=== PATIENT | female | born 1990 | race Hispanic/Latino ===

== ENCOUNTER 2022-03-25 20:38 | Observation (INO) | payer OTHER ==
[~2022-03-25] VITALS: Ht 157.5 cm; Wt 64.0 kg
[2022-03-25] MEDS ORDERED: PANTOPRAZOLE 40 MG/VIAL IVP ONE (21:30)
[2022-03-25] MEDS ORDERED: 0.9%NACL 1000ML 1,000 ML IV ONE (21:30)
[2022-03-25] MEDS ORDERED: PANTOPRAZOLE 40 MG/VIAL ONE (21:40)
[2022-03-25 21:45] LABS: BASOPHILS % (AUTO) 0.5 % (0.0-5.0); HEMATOCRIT 42.6 % (36-48); LYMPHOCYTES % (AUTO) 35.8 % (21.0-51.0); MEAN CORPUSCULAR HEMOGLOBIN 27.3 pg (27.0-33.0); MEAN CORPUSCULAR HGB CONC 33.3 g/dL (32.0-36.0); MEAN CORPUSCULAR VOLUME 81.9 fL (79-99); MONOCYTES % (AUTO) 7.9 % (3.0-13.0); NEUTROPHILS % (AUTO) 54.5 % (40.0-77.0); PLATELET COUNT (AUTO) 272 K/uL (130-400); RED CELL DISTRIBUTION WIDTH 12.2 % (11.0-15.5); WHITE BLOOD COUNT (AUTO) 9.4 K/uL (4.8-10.8)
[2022-03-25 21:54] LABS: CREATININE 0.6 mg/dL (0.5-1.5); POTASSIUM 3.4 mmol/L (3.5-5.1)
[2022-03-25 21:58] LABS: ALBUMIN 4.2 g/dL (3.5-5.0); BILIRUBIN,TOTAL 0.6 mg/dL (0.2-1.0); TOTAL PROTEIN, SERUM 7.9 g/dL (6.0-8.3)
[2022-03-25 22:01] LABS: INR 0.94 (0.85-1.15); PROTHROMBIN TIME 10.3 SEC (9.6-11.6)
[2022-03-25 22:02] LABS: PARTIAL THROMBOPLASTIN TIME 25.6 SEC (26.3-35.5)
[2022-03-25] MEDS ORDERED: POTASSIUM BICARB/CIT AC 25 MEQ TABLET.EFF ONE (22:17)
[2022-03-25] MEDS ORDERED: POTASSIUM BICARB/CIT AC 25 MEQ TABLET.EFF PO ONE (22:30)
[2022-03-25 22:32] LABS: HCG,QUAL RESULT NEGATIVE (NEGATIVE)
[2022-03-25 22:33] LABS: APPEARANCE,URINE Clear (CLEAR); BILIRUBIN,URINE Negative (NEGATIVE); COLOR,URINE Yellow (YELLOW); GLUCOSE, URINE (UA) Negative (NEGATIVE); KETONES,URINE Negative (NEGATIVE); LEUKOCYTE ESTERASE ,URINE Negative (NEGATIVE); NITRATE,URINE Negative (NEGATIVE); OCCULT BLOOD,URINE Negative (NEGATIVE); PROTEIN,URINE Negative (NEGATIVE); UROBILINOGEN,URINE 0.2 mg/dL (0.2-1.0)
[2022-03-25] MEDS ORDERED: 0.9%NACL 1000ML 1,000 ML IV SCH (23:00)
[2022-03-26] MEDS ORDERED: ACETAMINOPHEN 650 MG SUPPOSITORY RC PRN (00:30)
[2022-03-26] MEDS ORDERED: ACETAMINOPHEN 325 MG TAB PO PRN (00:30)
[2022-03-26] MEDS ORDERED: LACTULOSE 20 GM/30 ML UDCUP PO PRN (00:30)
[2022-03-26] MEDS ORDERED: TEMAZEPAM 15 MG CAPSULE PO PRN (00:30)
[2022-03-26] MEDS ORDERED: ONDANSETRON 4MG INJ IVP PRN (00:30)
[2022-03-26 00:48] LABS: HEMATOCRIT 40.6 % (36-48)
[2022-03-26] MEDS: 0.9%NACL 1000ML 1,000 ML IV SCH ×2 (02:14→05:33)
[2022-03-26 05:10] VITALS: BP 111/68
[2022-03-26 08:04] VITALS: BP 109/73
[2022-03-26] MEDS: PANTOPRAZOLE 40 MG/VIAL IVP SCH ×2 (08:57→22:06)
[2022-03-26 12:00] VITALS: BP 102/56
[2022-03-26 12:37] LABS: HEMATOCRIT 36.8 % (36-48)
[2022-03-26] MEDS ORDERED: PEG 3350/NA SULF,BICARB,CL/KCL 4000 ML SOLN PO STA (16:30)
[2022-03-26 17:27] VITALS: BP 116/72
[2022-03-26 18:14] LABS: HEMATOCRIT 40.5 % (36-48)
[2022-03-26] MEDS ORDERED: MONTELUKAST (19:02)
[2022-03-26 20:38] VITALS: BP 120/73
[2022-03-27] VITALS (19 sets, daily range): BP systolic 90–127; BP diastolic 46–72
[2022-03-27 05:19] LABS: BASOPHILS % (AUTO) 0.4 % (0.0-5.0); EOSINOPHILS % (AUTO) 1.8 % (0.0-8.0); HEMATOCRIT 35.5 % (36-48); LYMPHOCYTES % (AUTO) 39.9 % (21.0-51.0); MEAN CORPUSCULAR HEMOGLOBIN 27.6 pg (27.0-33.0); MEAN CORPUSCULAR VOLUME 83.7 fL (79-99); NEUTROPHILS % (AUTO) 48.7 % (40.0-77.0); PLATELET COUNT (AUTO) 218 K/uL (130-400); RED BLOOD CELL COUNT(AUTO) 4.24 MIL/uL (4.00-5.50); RED CELL DISTRIBUTION WIDTH 12.5 % (11.0-15.5); WHITE BLOOD COUNT (AUTO) 5.6 K/uL (4.8-10.8)
[2022-03-27 05:46] LABS: ALBUMIN 3.1 g/dL (3.5-5.0); CREATININE 0.6 mg/dL (0.5-1.5); MAGNESIUM 1.8 mg/dL (1.80-2.40); PHOSPHORUS 3.2 mg/dL (2.5-4.9); POTASSIUM 3.7 mmol/L (3.5-5.1); TOTAL PROTEIN, SERUM 5.8 g/dL (6.0-8.3)
[2022-03-27] MEDS: PANTOPRAZOLE 40 MG/VIAL IVP SCH (08:07)
[2022-03-27] MEDS: 0.9%NACL 1000ML 1,000 ML IV SCH ×2 (08:08→14:15)
[2022-03-27] MEDS ORDERED: LIDOCAINE PF 100MG/5ML (2%) SYRINGE 5ML ONE (11:43)
[2022-03-27] MEDS ORDERED: PROPOFOL 10 MG/ML 20ML VIAL IV ONE (11:43)
[2022-03-27] MEDS ORDERED: FENTANYL CITRATE PF 50 MCG/1 ML 2ML VIAL ONE (11:43)
[2022-03-27] MEDS ORDERED: EPHEDRINE SULFATE 50 MG/ML AMPULE ONE (11:45)
[2022-03-27] MEDS ORDERED: MIDAZOLAM HCL 1 MG/ML 2ML VIAL ONE (11:56)
== END 2022-03-27 18:41 | disposition home or self-care (01) ==
LOC: EDH 20:38 → EDHIP 03-26 00:25 → 3AH 03-26 04:03
PROVIDERS: ADMIT Internal Medicine Critical Care Medicine; ATTEND Internal Medicine Critical Care Medicine
DX: K92.1 Melena (principal); K64.4 Residual hemorrhoidal skin tags; K52.9 Noninfective gastroenteritis and colitis, unspecified; I95.1 Orthostatic hypotension; E87.6 Hypokalemia; Z79.899 Other long term (current) drug therapy
CPT/HCPCS: 36415 ×3; 45380; 74176; 80053 ×2; 81003; 81025; 82270; 83735; 84100; 85014 ×4; 85018 ×4; 85025 ×2; 85610; 85730; 96361 ×3; 96374; 96375; 96376 ×2; 99284; A4215; A4606; A4620; C9113 ×4; G0378 ×40; J2001; J2250; J2405; J2704; J3010; J3490; J7030

== ENCOUNTER → 2023-03-24 | Outpatient (CLI) | payer OTHER ==
[~2023-03-24] MED LIST: DIATR MEGLU/DIATRIZOATE SODIUM 30 ML BOTTLE ONE
== END | disposition home or self-care (01) ==
LOC: RAH 08:22
PROVIDERS: ATTEND Surgery
DX: K31.84 Gastroparesis (principal)
CPT/HCPCS: 74240; Q9963

== ENCOUNTER → 2023-04-09 | Outpatient (CLI) | payer OTHER | END | disposition home or self-care (01) | LOC: RAH 07:33 | PROVIDERS: ATTEND Surgery | DX: K31.84 Gastroparesis (principal) | CPT/HCPCS: 78264; A9541 ==

== ENCOUNTER 2024-09-16 09:31 | Emergency (ER) | payer BC, OTHER ==
[~2024-09-16] VITALS: Ht 157.5 cm; Wt 55.8 kg
[2024-09-16 09:39] VITALS: BP 100/76; PULSE 80; RESP 16; TEMP 98.4; O2SAT 98
--- NOTE | 2024-09-16 09:52 | ERN ---
General Chief Complaint: Flank Pain Stated Complaint: RT FLANK PAIN Time Seen by MD: 09:33 History of Present Illness Initial Comments 33-year-old female history of gastroparesis presents for right flank pain. Patient reports it began last night, it is located in the right flank, it is severe, the area is tender. No nausea or vomiting. No diarrhea. She does report some dysuria recently. No fevers. She is currently on amoxicillin for a throat infection. Medical history: Gastroparesis Surgical history: Bypass surgery for the gastroparesis done by Carson Godinez. PCP: [facility], [place] Allergies: Coded Allergies: No Known Drug Allergies (Unverified Allergy, Unknown, 03/25/22) Home Meds No Active Prescriptions or Reported Meds Past Medical History Past Medical History: Other Medical History Other: GASTROPARISIS Past Surgical History: Other Surgical History Other: ABD SX, GABBI GUTIERREZ Family History Family History: Negative Social History Social History: Negative Female( History) LMP: Sep 04, 2024 : 5 Para: 5 Aborts: 0 ROS Dictation CONSTITUTIONAL: No chills, no fever, no weakness, no diaphoresis, no malaise. HEAD/FACE: No signs of trauma. EENT: No eye pain, no blurred vision, no tearing, no double vision, no ear pain, no ear discharge, no nose pain, no nasal congestion, no throat pain, no throat swelling, no mouth pain. RESPIRATORY: No cough, no orthopnea, no SOB, no stridor, no wheezing. CARDIOVASCULAR: No chest pain, no edema, no palpitations, no syncope. GASTROINTESTINAL/ABDOMINAL: Right flank pain GENITOURINARY: No abnormal discharge, no dysuria, no frequent urination, no hematuria. No complaints of pain in the genitals. MUSCULOSKELETAL: No back pain, no gout, no joint pain, no joint swelling, no muscle pain, no muscle stiffness, no neck pain. INTEGUMENTARY: No change in color, no change in hair/nails, no dryness, no lesion, no lumps, no rash. NEUROLOGICAL/PSYCH: No anxiety, not depressed, no emotional problem, no headache, no numbness, no pre-existing deficit, no history of seizures, no tremors, no weakness. HEMATOLOGIC/LYMPHATIC: Not anemic, no history of blood clots, no apparent bleeding, no bruising, glands not swollen. All Systems Negative, Except as Noted. Physical Exam Physical Exam Dictation VITAL SIGNS: Reviewed. GENERAL APPEARANCE: Alert, oriented x3, moderate distress due to pain HEAD AND FACE: Non-traumatic. EYES: PERRL, pink conjunctivas, eyelid no trauma, anterior chamber clear. EARS: Pinnas intact and no signs of trauma or erythema. Ear canals clear and no discharge. TMs no erythema. NOSE: No discharge, no bleeding. OROPHARYNX: Mouth normal, teeth no caries, tongue pink. Pharynx clear, no erythema. Tonsils no exudates, no abscesses noted. Mucous membrane moist. NECK: Supple, non-tender, no thyromegaly, no masses, no JVD, no bruits. BREAST: Deferred. CHEST: No tenderness, no crepitus, no paradoxical movement, no retractions. LUNGS: Clear, well-ventilated, symmetric, no rales, no wheezing, no rhonchi, no stridor, good breath sounds bilaterally. HEART: Regular rate, regular rhythm, no murmur, no gallops. VASCULAR: No peripheral edema. ABDOMEN: Right flank pain RECTAL: Deferred. GENITAL: Deferred. NEUROLOGICAL: Normal speech, gross motor function intact, gross sensory function intact. MUSCULOSKELETAL: Neck nontender, full range of motion, back nontender, full range of motion. EXTREMITIES: Nontender, full range of motion. SKIN: Color pink, dry, no turgor, no rash, no lacerations, no abrasions, no contusions. LYMPHATICS: Deferred. Results Laboratory and Microbiology Lab and Micro Result Laboratory Tests Test 09/16/24 09:40 09/16/24 09:53 Urine Color LIGHT-YELLOW (YELLOW) Urine Appearance CLEAR (CLEAR) Urine pH 7.0 (5.0-8.0) Urine Specific [place] 1.021 (1.001-1.031) Urine Protein NEGATIVE mg/dL (NEGATIVE) Urine Glucose (UA) NEGATIVE mg/dL (NEGATIVE) Urine Ketones NEGATIVE mg/dL (NEGATIVE) Urine Occult Blood NEGATIVE (NEGATIVE) Urine Nitrate NEGATIVE (NEGATIVE) Urine Bilirubin NEGATIVE mg/dL (NEGATIVE) Urine Urobilinogen 0.2 mg/dL (0.2-1.0) Urine Leukocyte Esterase NEGATIVE Markos/uL Urine HCG, Qualitative NEGATIVE (NEGATIVE) White Blood Count 9.7 K/uL (4.8-10.8) Red Blood Count 4.92 MIL/uL (4.00-5.50) Hemoglobin 13.5 g/dL (12.0-16.0) Hematocrit 40.2 % (36-48) Mean Corpuscular Volume 81.7 fL (79-99) Mean Corpuscular Hemoglobin 27.4 pg (27.0-33.0) Mean Corpuscular Hemoglobin Concent 33.6 g/dL (32.0-36.0) Red Cell Distribution Width 12.4 % (11.0-15.5) Platelet Count 291 K/uL (130-400) Mean Platelet Volume 9.0 fL (7.5-10.5) Immature Granulocyte % (Auto) 0.3 % (0-1) Neutrophils (%) (Auto) 65.5 % (40.0-77.0) Lymphocytes (%) (Auto) 25.8 % (21.0-51.0) Monocytes (%) (Auto) 7.2 % (3.0-13.0) Eosinophils (%) (Auto) 0.9 % (0.0-8.0) Basophils (%) (Auto) 0.3 % (0.0-5.0) Neutrophils # (Auto) 6.3 K/uL (1.8-7.7) Lymphocytes # (Auto) 2.5 K/uL (1.0-4.8) Monocytes # (Auto) 0.7 K/uL (0.1-1.0) Eosinophils # (Auto) 0.09 K/uL (0.00-0.70) Basophils # (Auto) 0.03 K/uL (0.00-0.20) Absolute Immature Granulocyte (auto 0.03 K/uL (0-1) Nucleated Red Blood Cells 0.0 % (0.0-0.19) Sodium Level 140 mmol/L (136-145) Potassium Level 4.1 mmol/L (3.5-5.1) Chloride Level 104 mmol/L (101-111) Carbon Dioxide Level 30 mmol/L (21-32) Blood Urea Nitrogen 11 mg/dL (7-18) Creatinine 0.6 mg/dL (0.5-1.0) Glomerular Filtration Rate Calc 120 mL/min (>90) Random Glucose 94 mg/dL (70-105) Total Calcium 9.1 mg/dL (8.5-10.1) Total Bilirubin 1.8 mg/dL (0.2-1.0) H Direct Bilirubin 0.2 mg/dL (0.0-0.3) Aspartate Amino Transf (AST/SGOT) 10 U/L (10-37) Alanine Aminotransferase (ALT/SGPT) 15 U/L (12-78) Alkaline Phosphatase 49 U/L (50-136) L Total Creatine Kinase 33 U/L (21-232) Total Protein 7.5 g/dL (6.0-8.3) Albumin 3.9 g/dL (3.5-5.0) Lipase 34 U/L (16-77) MDM CC: Flank pain Historian: Patient Comorbidities: Gastroparesis Limitations by social determinants of health: None Differential diagnosis: Kidney stone, biliary disease, lung pathology, other. Vital signs: Stable CBC normal BMP normal. T bili mildly elevated 1.8 otherwise normal liver function tests. Lipase normal. Urinalysis normal CXR: No pleural effusions focal infiltrates on the right lower side independently interpreted by me. CT scan of the abdomen and pelvis shows no acute abnormalities independently interpreted by me. There is no free fluid. Radiology also read the CT scan without any acute abnormalities describing the patient's pain. Ultrasound of the abdomen right upper quadrant shows no biliary disease, all within normal limits. Independently interpreted by me. Patient received 1 L normal saline, IV Dilaudid, IV Zofran, IV Toradol here in the ER. On re-evaluation her pain is better controlled. I do not see any life threats or obvious causes of her discomfort this time. We will DC with pain control and recommend PCP follow up. ED Course Orders Procedure Category Date Status Time Cbc With Differential LAB 09/16/24 Complete 09:49 ,Urine Test LAB 09/16/24 Complete 09:49 Urinalysis Profile LAB 09/16/24 Complete 09:49 Ct Abdomen/Pelvis CT 09/16/24 Resulted W/Contrast 09:49 0.9%Nacl 1000ml (Ns PHA 09/16/24 Complete 1000ml) 10:00 Hydromorphone 1 Mg PHA 09/16/24 Complete Inj (Dilaudid 1mg Inj 10:00 Ondansetron 4mg Inj PHA 09/16/24 Complete (Zofran 4mg Inj) 10:00 Creatine Kinase, Total LAB 09/16/24 Complete 09:49 Lipase LAB 09/16/24 Complete 09:49 Basic Metabolic Panel LAB 09/16/24 Complete 09:49 Hepatic Function Panel LAB 09/16/24 Complete 09:49 Ketorolac PHA 09/16/24 Complete Tromethamine 15mg/Ml 10:00 Chest 1vw RAD 09/16/24 Taken 09:49 Iohexol (Omnipaque) PHA 09/16/24 Complete 10:07 Us Abdominal Ruq\Ltd US 09/16/24 Taken 11:27 Current Medications Medications (Trade) Dose Ordered Sig/[place] Route PRN Reason Start Time Stop Time Status Last Admin Dose Admin Hydromorphone HCl (DiLAUDid 1MG INJ) 1 mg ONCE ONCE IVP 09/16/24 10:00 09/16/24 10:01 DC 09/16/24 10:02 Iohexol (Omnipaque) 75 ml STK-MED ONCE IV 09/16/24 10:07 09/16/24 10:07 DC Ketorolac Tromethamine (toRADol) 15 mg ONCE ONCE IV 09/16/24 10:00 09/16/24 10:01 DC 09/16/24 10:02 Ondansetron HCl (zoFRAN 4MG INJ) 4 mg ONCE ONCE IVP 09/16/24 10:00 09/16/24 10:01 DC 09/16/24 10:02 Sodium Chloride 1,000 ml @ 0 mls/hr ONCE ONCE IV 09/16/24 10:00 09/16/24 10:01 DC 09/16/24 10:02 Vital Signs Date Time Temp Pulse Resp B/P (MAP) Pulse Ox O2 Delivery O2 Flow Rate FiO2 09/16/24 09:39 98.4 80 16 100/76 98 Room Air* 0 21 09/16/24 09:33 98.4 80 16 103/76 100 Room Air DX & DISP Disposition: Discharge Departure Impression: Primary Impression: Right flank pain Condition: Stable Scripts Acetaminophen with Codeine (Acetaminophen-Cod #3 Tablet) 300 Mg-30 Mg Tablet 1 TAB PO Q6HPRN PRN for pain for 5 Days, #15 TAB 0 Refills Prov: CARO STEINBERG DO 09/16/24 Meloxicam (Meloxicam) 15 Mg Tablet 15 MG PO DAILY PRN for PAIN for 7 Days, #7 TAB Prov: CARO STEINBERG DO 09/16/24 Additional Instructions: There are no dangerous findings on your workup here today. Your symptoms may be musculoskeletal type pain or you may have recently passed a kidney stone. Your lab work (CBC, BMP, lipase, liver function tests, urinalysis) is normal. The CT scan of your abdomen and pelvis with contrast shows small ovarian cysts that are unlikely related to your symptoms. Otherwise there are no abnormalities. The ultrasound of your gallbladder and liver are normal. Your chest x-ray is normal. You received IV pain control and IV fluids here in the emergency department. I have prescribed meloxicam, which is an anti-inflammatory pain medication that you can take once per day for the next week or so. Use as needed. I have also prescribed Tylenol No. 3 (with codeine) to use for significant pain. You can take this 3 times per day as needed. I also recommend that you try [id number] patches such as Salonpas or lidocaine patches. If you continue with symptoms by early next week, I recommend he follow up with your primary doctor for re-evaluation. Please return to the emergency department if you have any concerns. Referrals: VICTOR MANUEL AIKEN MD (PCP) CARO STEINBERG DO Sep 16, 2024 09:52
[2024-09-16] MEDS: hydroMORPHone 1 MG INJ IVP ONE (10:02)
[2024-09-16] MEDS: ketOROlac 15MG/ML VIAL (15MG/ML) IV ONE (10:02)
[2024-09-16] MEDS: 0.9%NACL 1000ML 1,000 ML IV ONE (10:02)
[2024-09-16] MEDS: ondanSETRON 4MG INJ IVP ONE (10:02)
[2024-09-16 10:03] LABS: BASOPHILS # (AUTO) 0.03 K/uL (0.00-0.20); BASOPHILS % (AUTO) 0.3 % (0.0-5.0); EOSINOPHILS # (AUTO) 0.09 K/uL (0.00-0.70); EOSINOPHILS % (AUTO) 0.9 % (0.0-8.0); HEMATOCRIT 40.2 % (36-48); IMMATURE GRANULOCYTE ABSOLUTE 0.03 K/uL (0-1); LYMPHOCYTES # (AUTO) 2.5 K/uL (1.0-4.8); LYMPHOCYTES % (AUTO) 25.8 % (21.0-51.0); MEAN CORPUSCULAR HEMOGLOBIN 27.4 pg (27.0-33.0); MEAN CORPUSCULAR HGB CONC 33.6 g/dL (32.0-36.0); MEAN CORPUSCULAR VOLUME 81.7 fL (79-99); MONOCYTES # (AUTO) 0.7 K/uL (0.1-1.0); MONOCYTES % (AUTO) 7.2 % (3.0-13.0); NEUTROPHILS # (AUTO) 6.3 K/uL (1.8-7.7); NEUTROPHILS % (AUTO) 65.5 % (40.0-77.0); PLATELET COUNT (AUTO) 291 K/uL (130-400); RED BLOOD CELL COUNT(AUTO) 4.92 MIL/uL (4.00-5.50); RED CELL DISTRIBUTION WIDTH 12.4 % (11.0-15.5); WHITE BLOOD COUNT (AUTO) 9.7 K/uL (4.8-10.8)
[2024-09-16 10:06] LABS: APPEARANCE,URINE CLEAR (CLEAR); BILIRUBIN,URINE NEGATIVE (NEGATIVE); COLOR,URINE LIGHT-YELLOW (YELLOW); GLUCOSE, URINE (UA) NEGATIVE (NEGATIVE); KETONES,URINE NEGATIVE (NEGATIVE); LEUKOCYTE ESTERASE ,URINE NEGATIVE Leu/uL (NEGATIVE); NITRATE,URINE NEGATIVE (NEGATIVE); OCCULT BLOOD,URINE NEGATIVE (NEGATIVE); PROTEIN,URINE NEGATIVE (NEGATIVE); UROBILINOGEN,URINE 0.2 mg/dL (0.2-1.0)
[2024-09-16 10:07] LABS: ADD UA MICROSCOPIC NO
[2024-09-16] MEDS ORDERED: IOHEXOL-350 75 ML VIAL IV ONE (10:07)
[2024-09-16 10:25] LABS: HCG,QUALITATIVE URINE NEGATIVE (NEGATIVE)
[2024-09-16 10:25] LABS: ALBUMIN 3.9 g/dL (3.5-5.0); BILIRUBIN,DIRECT 0.2 mg/dL (0.0-0.3); BILIRUBIN,TOTAL 1.8 mg/dL (0.2-1.0); CREATININE 0.6 mg/dL (0.5-1.0); POTASSIUM 4.1 mmol/L (3.5-5.1); TOTAL PROTEIN, SERUM 7.5 g/dL (6.0-8.3)
--- NOTE | 2024-09-16 11:13 | HMCIMG ---
CT ABDOMEN/PELVIS W/CONTRAST HISTORY: Abdominal pain COMPARISON: 03/25/2022 TECHNIQUE: Multiple sequential axial images of the abdomen and pelvis were obtained from the dome of the diaphragm through symphysis pubis. Patient was not given contrast through intravenous route. Oral contrast was not given. FINDINGS: There are bilateral breast implants. No pleural effusion is seen bilaterally. There is no evidence of parenchymal disease or pulmonary nodule of the visualized lower lungs. Degenerative changes of the thoracolumbar spine are present. The heart is not enlarged. Liver is enlarged measuring 19 cm. Gallbladder is mildly distended. The liver, spleen, adrenal glands and pancreas are unremarkable. There is no evidence of hydronephrosis bilaterally. No evidence of renal stone is seen. Fecal material is seen in the colon. There are normal size retroperitoneal and mesenteric lymph nodes. No ascites is seen. No CT evidence of acute appendicitis is seen. Clinical correlation is recommended. There is tiny left ovarian cyst measuring 1.6 cm. There is right ovarian cyst measuring 1.8 cm. Complex fluid is seen in the pelvis may be related to ovarian cyst rupture. Pelvic sidewalls are symmetric bilaterally. Bladder is moderately distended. IMPRESSION: 1. No CT evidence of acute appendicitis is seen. Clinical correlation is recommended. There is tiny left ovarian cyst measuring 1.6 cm. There is right ovarian cyst measuring 1.8 cm. Complex fluid is seen in the pelvis may be related to ovarian cyst rupture. Fecal material is seen in the colon. No hydronephrosis is seen. CT was performed with one or more following dose reduction techniques: automated exposure control, adjustment of the mA and kv according to patient's size, or use of a iterative reconstruction technique.
[2024-09-16] MEDS ORDERED: MELO-108 PO (12:33)
[2024-09-16] MEDS ORDERED: ACET-2079 PO (12:33)
--- NOTE | 2024-09-16 12:37 | HMCIMG ---
US ABDOMINAL RUQ\E\LTD HISTORY: Flank pain COMPARISON: CT from 09/16/2024 TECHNIQUE: Right upper quadrant abdominal ultrasound study was performed. FINDINGS: Liver measured 15 cm. The visualized portion of the pancreas is within normal limits. No gallstone is seen. Common duct measures 2mm. No evidence of gallbladder wall thickening is seen. Right kidney measures 7.5 x 4 x 5.1 cm. No hydronephrosis is seen of the right kidney. IMPRESSION: 1. No gallstones or ductal dilatation is seen. 2. No hydronephrosis is seen. Right kidney is small in size.
--- NOTE | 2024-09-16 12:39 | HMCIMG ---
CHEST 1VW HISTORY: Right flank pain COMPARISON: None FINDINGS: A frontal projection of the chest was obtained. No acute pulmonary infiltrates is seen. The heart is normal in size. Prominent interstitial markings are seen. No evidence of aortic calcification is seen. IMPRESSION: 1. No acute pulmonary infiltrate is seen.
== END 2024-09-16 13:37 | disposition home or self-care (01) ==
LOC: EDH 09:31
DX: N83.201 Unspecified ovarian cyst, right side (principal); N83.202 Unspecified ovarian cyst, left side; R10.84 Generalized abdominal pain; Z79.2 Long term (current) use of antibiotics; Z98.890 Other specified postprocedural states
CPT/HCPCS: 99285; 74177; 96374; 76705; 96375; 71045; 82550; 80076; 80048; 83690; 85025; 81003; 81025; 36415; J1171; J7030; J2405; J1885; Q9967